=== PATIENT | female | born 1975 | race Caucasian/White ===

== ENCOUNTER 2018-07-18 21:28 | Emergency (ER) | payer BC ==
[~2018-07-18] VITALS: Ht 162.6 cm; Wt 57.6 kg
[2018-07-18 21:37] VITALS: BP_SYST 123
--- NOTE | 2018-07-18 21:48 | NUR ---
Patient triaged and placed in waiting room. VSS and patient appears in no acute distress at this time. Accompanied by , awaiting available bed, and MD notified of need for MSE.
--- NOTE | 2018-07-18 22:00 | NUR ---
Pt AAOx4 presents to ED c/o pain to R forearm and R hip s/p mechanical trip and fall. Swelling noted to R forearm. Pt limping on R side when ambulating. Skin pink dry and warm, breathing even and unlabored. No other injuries/complaints per pt/noted. Will continue to monitor.
--- NOTE | 2018-07-18 22:38 | NUR ---
ER Dr. Corea at bedside examining patient in triage room
--- NOTE | 2018-07-18 22:44 | NUR ---
Toradol 60mg/2mL IM to L deltoid administered. Pt tolerated well. No adverse reactions noted.
[2018-07-18] MEDS ORDERED: KETOROLAC TROMETHAMINE 60 MG/2 ML VIAL IM ONE (22:45)
--- NOTE | 2018-07-18 22:48 | NUR ---
Sling applied to R arm. Pt tolerated well.
[2018-07-18 23:04] VITALS: BP_SYST 120
--- NOTE | 2018-07-18 23:04 | NUR ---
Patient given written and verbal discharge instructions and verbalizes understanding. ER MD Corea discussed with patient the results and treatment provided. Patient in stable condition. ID arm band removed. No Rx given. Patient educated on pain management and to follow up with PMD. Pain Scale 2. MD aware. Opportunity for questions provided and answered. Medication side effect fact sheet provided.
== END 2018-07-18 23:04 | disposition home or self-care (01) ==
LOC: SED 21:28
DX: S53.401A Unspecified sprain of right elbow, initial encounter (principal); M79.7 Fibromyalgia; W19.XXXA Unspecified fall, initial encounter; Y93.89 Activity, other specified; Y92.89 Other specified places as the place of occurrence of the external cause; Y99.8 Other external cause status
CPT/HCPCS: 73090; 81025; 96372; 99283; J1885